=== PATIENT | female | born 1940 | race Caucasian/White ===

== ENCOUNTER 2022-12-16 08:33 | Outpatient (CLI) | payer MEDICARE, OTHER, SELFPAY ==
[2022-12-16 09:35] LABS: Hematocrit 39.3 % (37.0-47.0); Hemoglobin 13.2 g/dL (12.0-15.0)
[2022-12-16 09:46] LABS: Albumin Level 4.3 g/dL (3.5-5.1); Estimated Glomerular Filt Rate > 60; Glucose 99 mg/dL (65-110)
== END 2022-12-16 08:34 | disposition home or self-care (01) ==
PROVIDERS: PCP Internal Medicine; Visit Provider Orthopaedic Surgery
DX: K21.9 Gastro-esophageal reflux disease without esophagitis (principal); R43.8 Other disturbances of smell and taste; E78.2 Mixed hyperlipidemia; I10 Essential (primary) hypertension; M17.11 Unilateral primary osteoarthritis, right knee
CPT/HCPCS: 36415; 82040; 82565; 82947; 85014; 85018

== ENCOUNTER 2022-12-18 12:31 | Outpatient (CLI) | payer MEDICARE, OTHER, SELFPAY ==
--- NOTE | ~2022-12-18 | CT_ITS ---
EXAMINATION: CT LE RT wo con DATE: 12/18/2022 12:58 INDICATION: Right knee pain and osteoarthritis for preoperative planning TECHNIQUE: High resolution computed tomography (CT) of the right lower limb from the hip through the foot was performed without intravenous contrast. Additional sagittal and coronal reconstructions were performed. Automated exposure control and iterative reconstruction technique were employed. The dose -length product was 1725.33 mGy-cm. COMPARISON: 11/20/2022 FINDINGS: No fracture. Polyarticular osteoarthritis throughout the right lower limb, severe at the patellofemor al compartment of the right knee with with similar lateral patellar subluxation and severe lateral si ded joint space narrowing with remodeling the articular cortex and prominent subarticular cystic groves ges at the lateral patellar facet and lateral trochlea. Mild osteoarthritis at the medial and lateral compartments. Alignment of the right lower limb is otherwise normal. Moderate to severe osteoarthrit is with additional subarticular cystic changes at multiple joint spaces in the midfoot. Moderate oste oarthritis at a few of the interphalangeal joints. Mild osteoarthritis at the right hip, ankle and re maining joints in the right foot. Small right knee joint effusion. The uterus is not identified and h as likely been surgically resected. Pelvic floor relaxation. IMPRESSION: 1. Severe patellofemoral compartment osteoarthritis at the right knee. Reviewed, dictated and finalized at location A.
== END 2022-12-18 12:32 | disposition home or self-care (01) ==
PROVIDERS: PCP Internal Medicine; Visit Provider Orthopaedic Surgery
DX: M17.11 Unilateral primary osteoarthritis, right knee (principal)
CPT/HCPCS: 73700

== ENCOUNTER 2022-12-24 11:32 | Outpatient (CLI) | payer MEDICARE, OTHER, SELFPAY ==
--- NOTE | 2022-12-24 11:52 | ECG_ITS ---
Measurements Intervals [place] Rate: 58 P: 73 LA: 186 QRS: -2 QRSD: 96 T: 96 QT: 422 QTc: 416 Interpretive Statements SINUS BRADYCARDIA ST-T WAVE ABNORMALITY IN ANTEROLATERAL LEADS- CONSIDER ISCHEMIA ABNORMAL ECG NO PREVIOUS ECG AVAILABLE FOR COMPARISON Electronically Signed On 12-24-2022 12:31:56 CDT by Murali Pandya D.O.
== END 2022-12-24 11:33 | disposition home or self-care (01) ==
PROVIDERS: PCP Internal Medicine; Visit Provider Orthopaedic Surgery
DX: I10 Essential (primary) hypertension (principal); R94.31 Abnormal electrocardiogram [ECG] [EKG]
CPT/HCPCS: 93005

== ENCOUNTER 2023-01-23 11:49 | Outpatient (CLI) | payer MEDICARE, OTHER, SELFPAY ==
[2023-01-23 13:12] LABS: Basophils Percent Auto 0.8 % (0.2-1.2); Eosinophils Absolute Auto 0.1 K/mm3 (0-0.3); Eosinophils Percent Auto 2.5 % (0-4.4); Hematocrit 38.7 % (37.0-47.0); Hemoglobin 12.9 g/dL (12.0-15.0); Immature Granulocyte Absolute 0.01 K/mm3 (0.00-0.031); Immature Granulocyte Percent A 0.2 % (0-0.5); Lymphocytes Absolute Auto 1.33 K/mm3 (0.9-3.2); Lymphocytes Percent Auto 27.3 % (18.3-44.2); Mean Corpuscular HGB Conc 33.3 g/dl (32-36); Mean Corpuscular Hemoglobin 30.2 pg (26-34); Mean Corpuscular Volume 90.6 fl (80-100); Mean Platelet Volume 9.5 fl (7.4-10.4); Monocytes Absolute Auto 0.3 K/mm3 (0.1-0.6); Monocytes Percent Auto 6.4 % (2.6-8.5); Neutrophils Absolute Auto 3.1 K/mm3 (1.3-6.7); Neutrophils Percent Auto 62.8 % (45.5-73.1); Platelet Count Result 248 k/mm3 (150-375); Red Blood Count 4.27 M/mm3 (4.2-5.4); Red Cell Distribution Width 13.3 % (11.5-14.5); White Blood Count 4.9 K/mm3 (4.5-10.0)
[2023-01-23 13:19] LABS: Albumin Level 4.1 g/dL (3.5-5.1)
[2023-01-23 13:23] LABS: Anion Gap 5 mmol/L (8-16); Blood Urea Nitrogen 13 mg/dL (7-17); Calcium 9.1 mg/dL (8.4-10.2); Carbon Dioxide 32 mmol/L (22-30); Chloride 99 mmol/L (98-107); Estimated Glomerular Filt Rate > 60; Glucose 119 mg/dL (65-110); Potassium 3.8 mmol/L (3.4-5.0); Sodium 136 mmol/L (137-145)
[2023-01-23 13:25] LABS: Urine Cotinine NEGATIVE
[2023-01-23 13:49] LABS: Hemoglobin A1C 5.4 % (<5.7)
== END 2023-01-23 11:50 | disposition home or self-care (01) ==
LOC: ANHSURGERY 11:54
PROVIDERS: Anesthesiology; PCP Internal Medicine; Visit Provider Orthopaedic Surgery
DX: Z01.818 Encounter for other preprocedural examination (principal); I10 Essential (primary) hypertension; M17.11 Unilateral primary osteoarthritis, right knee
CPT/HCPCS: 36415; 80048; 80307; 82040; 83036; 85025; 87081

== ENCOUNTER 2023-02-18 00:15 | Day surgery (SDC) | payer MEDICARE, OTHER, SELFPAY ==
[2023-01-23 11:59] VITALS: BMI 26.4
--- NOTE | 2023-01-23 12:25 | PC.NURSE ---
Report to the Outpatient Waiting Room, entrance under the green pavilion located off [facility], at time __0830 on date __02/18/23 . Planned Procedure Time: _1030 . Time changes happen often and if your time is changed the preop area will call you the afternoon before. - You and your visitor will be asked to self-screen and do not enter if you have any COVID symptoms. - A mask is optional within the hospital at this time. Patients may have clear liquids (water, carbonated beverages, clear teas, apple juice) until 3 hours prior to surgery with a maximum of 20 ounces. - No food from midnight until time of surgery - Infants may have breast milk until 4 hours before surgery, formula 6 hours prior to surgery. - Children will be allowed to drink immediately following surgery. If applicable, please bring a bottle or sippy cup to assist with drinking. Juice, water, soda, and popsicles are readily available. For infants on formula, please bring formula the day of surgery. Pacifiers are allowed. Take the following medications with a SIP of water the morning of surgery: _AMLODIPINE, EYE DROPS,LEVOTHYROXINE, DO NOT STOP ANY OF YOUR OTHER PRESCRIPTION MEDICATIONS PRIOR TO SURGERY ?EXCEPT THE FOLLOWING Medications to discontinue per physician ___MELOXICAM HOLD 7 DAYS PRE OP PER DR GARZON LAST DOSE 02/10/23 ALL VITAMINS AND SUPPLEMENTS HOLD 7 DAYS PRE OP PER DR GARZON .LAST DOSE 02/10/23 TOTAL JOINT CLASS AT 10 AM Please no make-up, nail frisian, hairspray, perfume, deodorant, or body powder the day of surgery. No jewelry (including any body piercings) or valuables the day of surgery, leave them at home. Please take a shower or bath the night before, or the morning of, surgery with an antibacterial soap. Wear comfortable, loose fitting clothing. Children are encouraged to wear pajamas. - Jewelry must be removed prior to entering the operating room. Rings and piercings that are not removed may be cut off. - The hospital will not accept responsibility for valuables. - Please leave all valuables, including medications, at home the day of surgery. If you are going home after surgery, a licensed delivery driver must drive you home. - NO public transportation without another adult if you receive anesthesia. - We recommend that an adult stay with you for 24 hours following discharge. - We also recommend that you do not drive, make important decision, drink alcoholic beverages, or take any drugs that were not prescribed by your health care provider for at least 24 hours after your discharge time. For Pediatric surgeries, we recommend two adults accompany the child home. Follow any additional instructions given to you from your surgeon. If you or anyone in your household have experienced Covid symptoms in the past week, please notify your surgeon or the nurse liaison at the phone number below for possible testing. VERBAL AND WRITTEN instructions given to __PATIENT AND SPOUSE ROBERT and asked if any additional questions and then verbalized understanding. Patient advised to call surgeon office or pre surgery nurse liaison [phone] if any additional questions.
[2023-01-23 12:45] VITALS: BP 160/81; PULSE 66; RESP 18; TEMP 36.7; O2SAT 97
--- NOTE | 2023-02-17 13:53 | WPDANESEPPF ---
Anes - Initial Pre Proc Eval Procedure: Operation Date: 02/18/23 10:30 Proposed Procedures p Right Custom Total Knee Arthroplasty - Mariusz Goncalves MD Date/Time: 02/17/23 13:53 Surgeon: Mariusz Goncalves MD Pre Op Diagnosis: Prm O A Right Knee Patient Data Age: 82 Gender: F Height: 1.55 m Weight: 63.4 kg Last Vital Signs Temp 36.7 C 01/23/23 12:45 Pulse 66 01/23/23 12:45 Resp 18 01/23/23 12:45 BP 160/81 H 01/23/23 12:45 Pulse Ox 97 01/23/23 12:45 O2 Del Method Room Air 01/23/23 12:45 Allergies Allergy/AdvReac Type Severity Reaction Status Date / Time adhesive tape Allergy Mild Blister Verified 02/18/23 08:40 acetaminophen [From Tylenol] Allergy Unknown delays Verified 02/18/23 08:40 urine flow amoxicillin [From Amoxil] Allergy Unknown Hives Verified 02/17/23 08:54 tetracycline Allergy Unknown Hives Verified 01/23/23 12:00 Home Medications Medication Instructions Recorded Confirmed Type amlodipine 5 mg tablet 5 mg PO DAILY 11/01/22 02/18/23 History ascorbic acid (vitamin C) 500 mg 500 mg PO DAILY 11/01/22 02/18/23 History capsule cholecalciferol (vitamin D3) 62.5 62.5 mcg PO DAILY 11/01/22 02/18/23 History mcg (2,500 unit) capsule cyanocobalamin (vitamin B-12) 1,000 mcg PO EVERY OTHER DAY 11/01/22 02/18/23 History 1,000 mcg capsule diclofenac sodium 1 % topical gel 2 g topical QID 11/01/22 02/18/23 History fluticasone propionate 50 1 spray intranasal DAILY 11/01/22 02/18/23 History mcg/actuation nasal spray,suspension (Flonase Allergy Relief) hydrochlorothiazide 12.5 mg capsule 12.5 mg PO DAILY 11/01/22 02/18/23 History levothyroxine 112 mcg tablet 112 mcg PO DAILY 11/01/22 02/18/23 History (Synthroid) magnesium citrate 100 mg capsule 100 mg PO DAILY 11/01/22 02/18/23 History pantoprazole 40 mg granules 40 mg PO DAILY 11/01/22 02/18/23 History delayed-release for susp in packet (Protonix) potassium gluconate 595 mg (99 mg) 595 mg PO DAILY 11/01/22 02/18/23 History tablet psyllium husk (with sugar) 2 gram 2 wafer PO DAILY 11/01/22 02/18/23 History oral wafer (Metamucil Fiber Thin) zolpidem 5 mg tablet (Ambien) 5 mg PO QHS 11/01/22 02/18/23 History meloxicam 15 mg tablet 15 mg PO DAILY 11/20/22 02/18/23 History cyclosporine 0.05 % eye drops in a 1 drp EACH EYE Q12H 01/23/23 02/18/23 History dropperette (Restasis) glucosamine-chondroitin 500 mg-400 1 cap PO DAILY 01/23/23 02/18/23 History mg capsule lutein 20 mg capsule 20 mg PO DAILY 01/23/23 02/18/23 History vitamins A,C,F-szah-gzbpro 2,148 1 tablet PO BID 01/23/23 02/18/23 History mcg-113 mg-45 mg-17.4 mg tablet (PreserVision AREDS) aspirin 81 mg tablet,delayed 81 mg PO BID 14 days #28 tabs 02/18/23 Rx release meloxicam 15 mg tablet 15 mg PO DAILY #30 tabs 02/18/23 Rx oxycodone-acetaminophen 5 mg-325 1 - 2 tablet PO Q4-6H PRN pain #20 02/18/23 Rx mg tablet tabs prednisone 5 mg tablet 5 mg PO DAILY 3 weeks #21 tabs 02/18/23 Rx Patient hx anesthesia problems: none Family hx anesthesia problems: none Results Review: All pre-operative results and documents have been reviewed as part of the pre-operative evaluation. [facility] Past Medical History Medical History Age related osteoporosis Arthritis Disorder of zinc metabolism Dysgeusia GERD without esophagitis History of colon cancer History of stress test (~2011) Hypertension, essential Hypogeusia Hypothyroidism due to acquired atrophy of thyroid Irritable bowel syndrome with both constipation and diarrhea Lactose intolerance Laryngopharyngeal reflux Low bone mass Microsmia Mixed hyperlipidemia Ocular migraine PNAR (perennial non-allergic rhinitis) Surgical History Surgical History History of hysterectomy (~1995) History of partial colectomy (~1990) History of tonsillectomy (~1953) His
[2023-02-18] VITALS (17 sets, daily range): BP systolic 142–183; BP diastolic 55–86; PULSE 54–68; RESP 8–20; TEMP 35.8–36.9; O2SAT 92–100
--- NOTE | ~2023-02-18 | XR_ITS ---
EXAMINATION: [id number] DATE: 02/18/2023 12:00 INDICATION: Total right knee arthroplasty. Postop. TECHNIQUE: 2 views of right knee were obtained. COMPARISON: Right knee radiographs 11/20/2022 FINDINGS: There is a total right knee arthroplasty without patellar resurfacing in near-anatomic alig nment. No fracture. There is severe osteoarthritis of patellofemoral compartment. There is gas in the soft tissues, consistent recent surgery. No knee joint effusion. IMPRESSION: 1. Total right knee arthroplasty in near-anatomic alignment. Reviewed, dictated and finalized at location E. WINDER
--- NOTE | 2023-02-18 07:20 | WPDHPUPDATE1 ---
History and Physical Update Update Date/Time: 02/18/23 07:20 History and Physical has been reviewed, including an updated exam of the patient. There are NO changes in the patient's condition. Risks, benefits, and alternatives have been discussed and questions answered. Patient agrees to proceed with procedure.
[2023-02-18] MEDS: LACTATED RINGERS 1,000 ML 30 ML IV CONT ×2 (09:15→11:40)
--- NOTE | 2023-02-18 09:47 | WPDANESPNB ---
Anes - Peripheral Nerve Block Date/Time: 02/18/23 09:47 I have discussed with the patient/family/POA the placement of a peripheral nerve block for post-operative pain management, including associated risks, benefits, complications, and side effects. Alternative methods of post-operative analgesia were detailed. Questions were solicited and answers provided to the satisfaction of the patient/family/POA. Time-Out: A pre-procedural Time-Out was completed immediately before starting the procedure and confirmed: Patient Identification, Site, Procedure, Patient Position and the Availability of Requisite Equipment. Clinical Indications: Acute post-operative pain management requested by the operative surgeon. Nerve Block Insertion Note Anes-nerve block: adductor canal right Patient position: supine Skin prep: chlorhexidine Needle: 22 gauge, stimulating, insulated echogenic needle. Needle length: 80 mm Technique: ultrasound Injectate: bupivacaine 0.5% with epi 5 mcg/ml (30cc - no epi) Observations: tolerated well Complications: none Procedure start time:: 945 Procedure end time:: 948
[2023-02-18] MEDS: TRANEXAMIC ACID 1,000MG/ISO100 1,000 MG/100 ML BAG 200 MG IVPB (09:57)
[2023-02-18] MEDS: ceFAZolin 2 GM/D5W 50 ML 2 GM/50 ML BAG IVPB ×2 (09:57→17:36)
[2023-02-18] MEDS: GENTAMICIN BONE CEMENT REFOBACIN 1 EACH TOPICAL (10:30)
[2023-02-18] MEDS: fentaNYL CITRATE INJ (*CRX) 100 MCG/2 ML VIAL 25 MCG IV PUSH ×4 (12:20→12:49)
--- NOTE | 2023-02-18 12:21 | W.PM.PROC2 ---
Procedure Note - Detailed Date of Procedure 02/18/23 Pre-op Diagnosis Prm O A Right Knee Post-op Diagnosis Same Procedure Performed Total knee arthroplasty, right. Surgeon Mariusz Goncalves MD Guide Dog Instructor Ale Gallo PA-C Anesthesia General and Regional (Subsartorial block.) Findings Satisfactory bone. Patella less than 10mm. Lateral facetectomy performed. Description of Procedure Preoperative antibiotics were given. The limb was prepped and draped in the usual sterile fashion with a well-padded tourniquet high on the thigh. The limb was exsanguinated and the tourniquet inflated to 300 mmHg. A longitudinal incision was created just medial to the patella. A trivector approach to the knee was performed. Arthrotomy was taken down through the joint capsule. No significant releases were initially taken. The femur was exposed and the F1 jig was applied. The coring tool was used to remove the cartilage for the F2 jig to sit flush with the bone. The jig was pinned and the distal cut carefully taken. Caliper measurements confirmed appropriate bony resections according to the preoperative templated plan. The F4 cutting jig for the femur was applied, at the standard rotation. The AP and anterior chamfer cuts were taken. The F5 jig was applied and the posterior chamfer cuts were taken. The tibia was prepared using the T1 jig, after removing cartilage for the jig contact points. Proper alignment was checked with the alignment milagros. The tibia was cut using the T1u guide. Gap balancing was performed. Gap measurements were taken and the knee was trialed. Excellent alignment and soft tissue balancing was confirmed. The posterior cruciate ligament was recessed along the proximal tibia. Lateral patellar facetectomy performed. Meniscal remnants were removed. The trial components were assembled. Excellent range of motion and proper soft tissue balancing were confirmed throughout the full range of motion. Patellar tracking was excellent. The knee was copiously irrigated periodically throughout the procedure. The real implants were cemented into position. Excess cement was carefully removed. The wound was closed in layers with interrupted #1 Vicryl suture, #2 strata fix suture, 2-0 strata fix suture, 3-0 strata fix suture. Steri-Strips placed on the skin with the knee flexed. Sterile bulky dressing applied. The patient was brought to the recovery room in stable condition. There were no complications. Physician election assistant, Ale Gallo PA-C, required for surgery; including patient positioning, draping, tissue retraction, maintaining instrument position, cement removal, wound closure, and dressing placement. Implants Conformis Imprint total knee arthroplasty. Cemented. Cruciate retaining. 8 mm insert. Estimated Blood Loss 100 Drains No Complications No immediate complications Condition Stable Disposition PACU [facility] Billing Surgery - Charge Forward: Surgery Billing
--- NOTE | 2023-02-18 13:00 | SUR.PHASEI ---
Patient meets PACU discharge criteria, unit bed unavailable at this time. Patient placed in extended recovery status.
[2023-02-18] MEDS: SENNA/DOCUSATE SODIUM TABLET 2 TAB PO (17:33)
[2023-02-18] MEDS: ASPIRIN 81 MG ENTERIC TABLET PO (17:34)
--- NOTE | 2023-02-18 18:14 | ADMGEN ---
This patient, Prisca Sierra, was admitted to [facility] Room 300-01. Patient/family oriented to hospital policies and general routines including ID bracelet, bed and alarms, visiting hours, pain management, procedures, bathroom and other care routines, personal items, smoking policy, room service/diet, and visiting hours. Information on how to activate the Rapid Response Team has been discussed. Patient/Family are encouraged to report perceived risks to care and to ask questions if they do not understand what they are told or what they should do.
[2023-02-18] MEDS: FAMOTIDINE 20 MG TABLET PO (20:27)
[2023-02-18] MEDS: cycloSPORINE 0.4 ML OPHTH SOLUTION 1 DROP EACH EYE (20:27)
[2023-02-18] MEDS: ZOLPIDEM TARTRATE (*CRX) 5 MG TABLET PO (20:27)
--- NOTE | 2023-02-18 21:51 | PM.IMCN ---
Assessment and Plan Assessment and plan (1) Status post total right knee replacement: Code(s): Z96.651 - Presence of right artificial knee joint Status: Acute (2) Hypertension, essential: Code(s): I10 - Essential (primary) hypertension Status: Acute (3) Hypothyroidism due to acquired atrophy of thyroid: Code(s): E03.4 - Atrophy of thyroid (acquired) Status: Acute (4) Insomnia: Qualifiers: Insomnia type: other insomnia Qualified Code(s): G47.09 - Other insomnia Code(s): G47.00 - Insomnia, unspecified Status: Acute Plan Problem List 1. s/p total right knee replacement primary care through ortho team ambulate with assistance and up to chair cardiac monitoring Q4H use IS SCDs resume diet: regular pain management zofran PRN for nausea monitor labs in AM - CBC and BMP adding maintenance fluids: LR 100 mL/hr 2. HTN Continue amlodipine and hydrochlorothiazide hydralazine prn for BP greater than 175/90 monitor 3. hypothyroidism low clinical concern for alteration in TSH/T3/T4 r/t medication continue home levothyroxine 4. insomnia continue Ambien p.r.n. add melatonin p.r.n. Home Meds/Chronic Conditions - Flonase and eyedrops continued. - Held home preserve vision, Metamucil, potassium, magnesium, lutein, glucosamine/chondroitin, diclofenac topical, B12, D3, vitamin-C. may resume at d/c. Diet: regular GI Prophylaxis: continue home pantoprazole DVT Prophylaxis: SCDs Lines: pIV Code Status: Full Code, requesting no salvage determiner G-Tube or Trach. HPI Date of Consult Consult date: 02/18/23 Requesting Physician: Mariusz Goncalves MD Primary Care Provider: Robert SmithMD Consult Narrative Reason for consult: Medical Managment Narrative: Prisca Sierra is a 82 year old female presents here for a R total knee arthroplasty with PMH of HTN, dm, IBS, GERD, colon cancer s/p partial colectomy. Patient had reported severe right knee pain with swelling. Attempted conservative measures: Daily NSAIDs and PT. However given severity of pain and alteration in gait with mild valgus deformity and tricompartmental disease, patient elected to move forward with surgical treatment. No assistive devices used prior to surgery. R total knee performed on 02/18 without immediate complications. Patient reports that her blood pressure is normally 120/60, no recent issues with her BP, and she has not had any recent med changes. Most recent med change was last year, patient's Synthroid was reduced. Patient followed up for this med change with her PCP this past December, TSH rechecked and no issues. Denies any tachycardia, palpitations, nausea, vomiting, constipation, depression/anxiety, cold intolerance. Does endorse heat intolerance, reports this is chronic and unchanged. No other concerns with chronic conditions. Does report some insomnia when sleeping in a new place, occasionally will take Ambien for this problem. Also reports feeling very dry due to reduced liquid intake r/t mild postoperative nausea. A/Ox4. Review of Systems Review of Systems: All systems reviewed & are unremarkable except as noted in HPI and below PMFSH Past Medical History Medical History (Updated 02/18/23 @ 22:11 by Dacia Noyola APRN) Age related osteoporosis Arthritis Disorder of zinc metabolism Dysgeusia GERD without esophagitis History of colon cancer History of stress test (~2011) Hypertension, essential Hypogeusia Hypothyroidism due to acquired atrophy of thyroid Insomnia Irritable bowel syndrome with both constipation and diarrhea Lactose intolerance Laryngopharyngeal reflux Low bone mass Microsmia Mixed hyperlipidemia Ocular migraine PNAR (perennial non-allergic rhinitis) Surgical History Surgical History History of hysterectomy (~1995) History of partial colectomy (~1990) Histo
[2023-02-18] MEDS: LACTATED RINGERS 1,000 ML 100 ML IV CONT (22:09)
[2023-02-19] VITALS: BP 166/59; PULSE 61; RESP 16; TEMP 35.8; O2SAT 97
[2023-02-19] MEDS: oxyCODONE HCL (*CRX) 5 MG TAB IR 10 MG PO (00:15)
[2023-02-19] MEDS: ceFAZolin 2 GM/D5W 50 ML 2 GM/50 ML BAG IVPB ×2 (02:30→10:04)
[2023-02-19 05:05] VITALS: BP 158/60; PULSE 60; RESP 16; TEMP 35.6; O2SAT 93
[2023-02-19] MEDS: LEVOTHYROXINE SODIUM 112 MCG TABLET PO (05:13)
[2023-02-19 06:44] LABS: Basophils Percent Auto 0.4 % (0.2-1.2); Eosinophils Absolute Auto 0.1 K/mm3 (0-0.3); Eosinophils Percent Auto 0.6 % (0-4.4); Hematocrit 32.4 % (37.0-47.0); Hemoglobin 10.7 g/dL (12.0-15.0); Immature Granulocyte Absolute 0.03 K/mm3 (0.00-0.031); Immature Granulocyte Percent A 0.3 % (0-0.5); Lymphocytes Absolute Auto 1.32 K/mm3 (0.9-3.2); Lymphocytes Percent Auto 14.6 % (18.3-44.2); Mean Corpuscular Hemoglobin 30.1 pg (26-34); Mean Corpuscular Volume 91.3 fl (80-100); Mean Platelet Volume 9.5 fl (7.4-10.4); Monocytes Absolute Auto 0.6 K/mm3 (0.1-0.6); Monocytes Percent Auto 6.4 % (2.6-8.5); Neutrophils Percent Auto 77.7 % (45.5-73.1); Platelet Count Result 216 k/mm3 (150-375); Red Blood Count 3.55 M/mm3 (4.2-5.4); Red Cell Distribution Width 13.1 % (11.5-14.5)
[2023-02-19 07:15] LABS: Anion Gap 3 mmol/L (8-16); Blood Urea Nitrogen 10 mg/dL (7-17); Calcium 8.4 mg/dL (8.4-10.2); Carbon Dioxide 32 mmol/L (22-30); Chloride 97 mmol/L (98-107); Estimated CRCL calculation 46 ml/min; Estimated Glomerular Filt Rate > 60; Glucose 106 mg/dL (65-110); Potassium 3.4 mmol/L (3.4-5.0); Sodium 132 mmol/L (137-145)
[2023-02-19 08:00] VITALS: BP 125/58; PULSE 62; RESP 16; TEMP 37.1; O2SAT 99
--- NOTE | 2023-02-19 08:10 | PM.DS ---
DS: Admitting Diagnosis Discharge Date 02/19/23 Admitting Diagnosis OA knee Right DS: Discharge Diagnosis Discharge Diagnosis (1) Status post total right knee replacement: Code(s): Z96.651 - Presence of right artificial knee joint Status: Acute Plan Postop day 1: Right total knee arthroplasty. Patient tolerated procedure well. No complications. Pain manageable with pain medication. No numbness or tingling. We had a lengthy discussion regarding postoperative wound care, limitations, expectations, and exercises. Patient shows good understanding. She has had initial physical therapy and is tolerating it well. DVT prophylaxis: 81 mg baby aspirin b.i.d. for 14 days. Pain medication: Oxycodone. Patient has followup appointment with Dr. Goncalves in 3 weeks. DS: Summary Hospital Course Reason for hospitalization: Total knee arthroplasty Hospital Course: Patient tolerated procedure well. Has had initial PT/OT. No complications. Pain well managed. Status at Discharge Functional status at discharge: uses cane/walker Overall status at discharge: patient is progressing back to baseline Time Spent with Patient Time attestation: Total time spent providing and/or coordinating discharge services: Exam Narrative: Normal weight 82 y/o female. Resting comfortably in chair. No acute distress. A&O x3. Wearing compression socks bilaterally. Dressing intact with no drainage. Moderate swelling. Moderate ecchymosis, worse medially. Mild erythema. No hematoma. No signs of infection. Good early range of motion. Calf nontender. Neurologic status intact. No varicosities. Distal pulses palpable. DS: Data Data Completed and Pending Labs on day of discharge: Labs from last 24 hours 02/19/23 02/18/23 06:09 09:14 WBC 9.0 RBC 3.55 L Hgb 10.7 L Hct 32.4 L MCV 91.3 MCH 30.1 MCHC 33.0 RDW 13.1 Plt Count 216 MPV 9.5 Immature Gran % (Auto) 0.3 Neut % (Auto) 77.7 H Lymph % (Auto) 14.6 L [place] % (Auto) 6.4 Eos % (Auto) 0.6 Baso % (Auto) 0.4 Lymph # (Auto) 1.32 [place] # (Auto) 0.6 Eos # (Auto) 0.1 Baso # (Auto) 0.0 Abs Immat Gran (auto) 0.03 Absolute Neuts (auto) 7.0 H Absolute Nucleated RBC 0.0 Nucleated RBC % 0.0 Sodium 132 L Potassium 3.4 Chloride 97 L Carbon Dioxide 32 H Anion Gap 3 L BUN 10 Creatinine 0.60 L Estim Creat Clear Calc 46 Estimated GFR > 60 Glucose 106 Calcium 8.4 Blood Type O Positive Antibody Screen Negative Discharge Plan Discharge Patient Disposition: Home, Self-Care Discharge Instructions: See green instruction sheets Stand Alone Forms: General Discharge Instructions Follow-up/Referrals: Ale Gallo PA [Physician Commercial Relationship Manager] - Discharge Medications: New aspirin 81 mg tablet,delayed release (DR/EC) 81 mg PO BID 14 Days Qty: 28 0RF meloxicam 15 mg tablet 15 mg PO DAILY Qty: 30 0RF Rx Instructions: Cut in half. Take 1/2 in morning and 1/2 at night. Take with food. Stop if stomach upset. prednisone 5 mg tablet 5 mg PO DAILY 21 Days Qty: 21 0RF oxycodone 5 mg tablet 5 mg PO Q4H PRN (Reason: pain) Qty: 20 0RF Continued meloxicam 15 mg tablet 15 mg PO DAILY amlodipine 5 mg tablet 5 mg PO DAILY ascorbic acid (vitamin C) 500 mg capsule 500 mg PO DAILY cholecalciferol (vitamin D3) 62.5 mcg (2,500 unit) capsule 62.5 mcg PO DAILY cyanocobalamin (vitamin B-12) 1,000 mcg capsule 1,000 mcg PO EVERY OTHER DAY diclofenac sodium 1 % gel 2 g topical QID Rx Instructions: apply to single elbow, wrist or hand; for hand includes palm/fingers/back of hand fluticasone propionate [Flonase Allergy Relief] 50 mcg/actuation spray,suspension 1 spray intranasal DAILY Rx Instructions: administer into each nostril hydrochlorothiazide 12.5 mg capsule 12.5 mg PO DAILY levothyroxine [Synthroid
[2023-02-19] MEDS: oxyCODONE HCL (*CRX) 5 MG TAB IR PO (08:38)
[2023-02-19] MEDS: CYCLOBENZAPRINE HCL 10 MG TABLET PO (08:39)
[2023-02-19] MEDS: hydroCHLOROthiazide 12.5 MG CAPSULE PO (08:39)
[2023-02-19] MEDS: SENNA/DOCUSATE SODIUM TABLET 2 TAB PO (08:39)
[2023-02-19] MEDS: polyethylene glycoL 3350 17 GM POWD.PACK PO (08:39)
[2023-02-19] MEDS: MELOXICAM 7.5 MG TABLET 15 MG PO (08:40)
[2023-02-19] MEDS: FAMOTIDINE 20 MG TABLET PO (08:40)
[2023-02-19] MEDS: cycloSPORINE 0.4 ML OPHTH SOLUTION 1 DROP EACH EYE (08:40)
[2023-02-19] MEDS: amLODIPine BESYLATE 5 MG TABLET PO (08:40)
[2023-02-19] MEDS: predniSONE 5 MG TABLET PO (08:40)
[2023-02-19] MEDS: ASPIRIN 81 MG ENTERIC TABLET PO (08:40)
[2023-02-19] MEDS: PANTOPRAZOLE 40 MG TABLET PO (08:41)
[2023-02-19] MEDS: FLUTICASONE PROPIONATE 0.05% NA SPR 16 GM BTL (*BKC) 1 SPRAY NASAL (08:42)
--- NOTE | 2023-02-19 13:03 | PM.IMPN ---
Progress Note: A&P Assessment and Plan (1) Status post total right knee replacement: Code(s): Z96.651 - Presence of right artificial knee joint Status: Acute Assessment and Plan: Patient is working with PT/OT and progressing. (2) Hypertension, essential: Code(s): I10 - Essential (primary) hypertension Status: Acute (3) Hypothyroidism due to acquired atrophy of thyroid: Code(s): E03.4 - Atrophy of thyroid (acquired) Status: Acute (4) Insomnia: Qualifiers: Insomnia type: other insomnia Qualified Code(s): G47.09 - Other insomnia Code(s): G47.00 - Insomnia, unspecified Status: Acute Plan Problem List 1. s/p total right knee replacement primary care through ortho team ambulate with assistance and up to chair cardiac monitoring Q4H use IS SCDs resume diet: regular pain management zofran PRN for nausea 2. HTN Continue amlodipine and hydrochlorothiazide hydralazine prn for BP greater than 175/90 monitor 3. hypothyroidism low clinical concern for alteration in TSH/T3/T4 r/t medication continue home levothyroxine 4. insomnia continue Ambien p.r.n. add melatonin p.r.n. Home Meds/Chronic Conditions - Flonase and eyedrops continued. - Held home preserve vision, Metamucil, potassium, magnesium, lutein, glucosamine/chondroitin, diclofenac topical, B12, D3, vitamin-C. may resume at d/c. Diet: regular GI Prophylaxis: continue home pantoprazole DVT Prophylaxis: SCDs Lines: pIV Code Status: Full Code, requesting no fpc G-Tube or Trach. Time Spent With Patient Time: Less than 30 minutes Subjective Date/time seen: 02/19/23 1015 Review of Systems Review of Systems: All systems reviewed & are unremarkable except as noted in HPI and below Constitutional: Constitutional: Reports no additional constitutional complaints Musculoskeletal: Musculoskeletal: Reports arthralgias (Right knee s/p knee replacement) Exam Narrative: Upon standing this morning patient up in chair packing her bags and getting dressed. States she is ready to go home. Pleasant and oriented x4. Appears in no acute distress. Const: General: comfortable and no acute distress HENMT: Face/Nose/Sinus: Normal nares present Mouth: Yes moist mucous membranes Eyes: General: appearance normal, both eyes and all related structures Sclera: sclerae normal Pupils: Equal, round and reactive pupils present EOM: EOMs intact bilaterally Neck: Neck: supple Resp: Effort & Inspection: normal respiratory effort Auscultation: clear to auscultation bilaterally Other: Patient appears in no acute respiratory distress. Able to speak complete sentences without difficulty. No use of accessory muscles appreciated. Lung sounds are clear and equal bilaterally. Cardio: Rate: regular rate Rhythm: regular rhythm Other: S1-S2 present without murmur, rub, ectopy GI: GI Palp: Yes Soft to palpation Auscultation: normal bowel sounds Skin: General skin exam: normal color, no rashes or lesions noted and wounds noted Wounds: wounds noted Other: post-op incision to R anterior knee, no active draining or ecchymosis. Dressing in place, dry and intact. Mild tenderness proximal to patella. Neuro: Cranial nerves: Yes Equal, round and reactive pupils present Speech: normal speech Sensory Exam: normal sensation Other: A/Ox4 Extrem: General: normal to inspection Psych: Mental Status: mental status grossly normal Affect: normal affect Objective Data Vital Signs Vital Signs: Vital Signs - 24 hr 02/18/23 13:10 02/18/23 13:25 02/18/23 13:40 Temperature Pulse Rate 54 L 55 L 58 L Respiratory Rate 12 12 20 Blood Pressure 166/63 H 148/71 H 142/70 H Pulse Oximetry 99 99 98 Oxygen Delivery Nasal Cannula Nasal Cannula Nasal Cannula Oxygen Flow Rate 2 2 2 02/18/23 13:55 02/18/23 14:07 02/18/23 14:54 Temperature Pulse Rate 55 L 56
--- NOTE | 2023-02-19 13:56 | P.PNAN_ITS ---
Anes - Prog Note Post-Op Date/Time: 02/19/23 13:56 Cardiovascular status: normal Respiratory status: normal Airway patency: baseline Mental status: baseline Post-Op hydration status: normal Vital Signs: Last Vital Signs Temp 98.8 F 02/19/23 08:00 Pulse 62 02/19/23 08:00 Resp 16 02/19/23 08:00 BP 125/58 L 02/19/23 08:00 Pulse Ox 99 02/19/23 08:00 O2 Del Method Room Air 02/19/23 08:00 O2 Flow Rate 2 02/18/23 13:55 Pain Score (VAS): 0/10 I/O: Intake & Output 02/18/23 02/19/23 02/19/23 23:59 07:59 15:59 Intake Total 170 390 240 Balance 170 390 240 Laboratory Tests 02/19/23 06:09 02/19/23 06:09 02/19/23 06:09 WBC 9.0 RBC 3.55 L Hgb 10.7 L Hct 32.4 L MCV 91.3 MCH 30.1 MCHC 33.0 RDW 13.1 Plt Count 216 MPV 9.5 Immature Gran % (Auto) 0.3 Neut % (Auto) 77.7 H Lymph % (Auto) 14.6 L [place] % (Auto) 6.4 Eos % (Auto) 0.6 Baso % (Auto) 0.4 Lymph # (Auto) 1.32 [place] # (Auto) 0.6 Eos # (Auto) 0.1 Baso # (Auto) 0.0 Abs Immat Gran (auto) 0.03 Absolute Neuts (auto) 7.0 H Absolute Nucleated RBC 0.0 Nucleated RBC % 0.0 Sodium 132 L Potassium 3.4 Chloride 97 L Carbon Dioxide 32 H Anion Gap 3 L BUN 10 Creatinine 0.60 L Estim Creat Clear Calc 46 Estimated GFR > 60 Glucose 106 Calcium 8.4 Post-procedural complaints: none Patient Feedback: Patient satisfied with anesthetic care.
== END 2023-02-19 11:45 | disposition home or self-care (01) ==
LOC: ANHSURGERY 08:24 → ANH3MEDSUR 14:11
PROVIDERS: Physician Assistant Surgical; PCP Internal Medicine; Visit Provider Orthopaedic Surgery
PROC: (CPT 27447; principal; 2023-02-18 10:30)
DX: M17.11 Unilateral primary osteoarthritis, right knee (principal); I10 Essential (primary) hypertension; E03.4 Atrophy of thyroid (acquired); G47.00 Insomnia, unspecified; E78.5 Hyperlipidemia, unspecified
CPT/HCPCS: 27447; 36415; 73560; 80048; 85025; 86850; 86900; 86901; 97110; 97116; 97161; 97165; 97530; 97535; A9270; C1713; C1776; J0171; J0690; J1100; J1170; J1885; J2250; J2270; J2405; J2704; J2795; J3010; J7120; J7512

== ENCOUNTER 2023-03-12 12:29 | Outpatient (CLI) | payer MEDICARE, OTHER, SELFPAY ==
--- NOTE | ~2023-03-12 | XR_ITS ---
EXAMINATION: XR knee RT 3V DATE: 03/12/2023 12:48 INDICATION: Postop right knee arthroplasty TECHNIQUE: Three views of the right knee were obtained. COMPARISON: 11/20/2022 FINDINGS: Alignment is normal. No fracture or osteochondral lesion. There are changes of interval kne e arthroplasty. No joint effusion is identified. Soft tissues are unremarkable. IMPRESSION: 1. Changes of interval knee arthroplasty without acute osseous abnormality. Reviewed, dictated and finalized at location B. [employer]ST
== END 2023-03-12 12:30 | disposition home or self-care (01) ==
PROVIDERS: PCP Internal Medicine; Visit Provider Orthopaedic Surgery
DX: Z47.1 Aftercare following joint replacement surgery (principal); Z96.651 Presence of right artificial knee joint
CPT/HCPCS: 73562

== ENCOUNTER 2023-04-09 10:31 | Outpatient (CLI) | payer MEDICARE, OTHER, SELFPAY ==
--- NOTE | ~2023-04-09 | XR_ITS ---
XR knee RT min 4V DATE: 04/09/2023 10:50 INDICATION: Right artificial knee joint TECHNIQUE: [place], [place] and standing AP and lateral views COMPARISON: 03/12/2023 right knee FINDINGS: Status post right knee arthroplasty. No fracture, dislocation, periosteal reaction or bone destruction is detected. IMPRESSION: Right knee arthroplasty Reviewed, dictated and finalized at location B. 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
== END 2023-04-09 10:32 | disposition home or self-care (01) ==
PROVIDERS: PCP Internal Medicine; Visit Provider Orthopaedic Surgery
DX: Z96.651 Presence of right artificial knee joint (principal)
CPT/HCPCS: 73564

== ENCOUNTER 2023-08-08 09:54 | Outpatient (CLI) | payer MEDICARE, OTHER, SELFPAY ==
--- NOTE | ~2023-08-08 | XR_ITS ---
Right Knee Technique: AP, lateral, and sunrise views were obtained. Clinical History: Arthroplasty follow-up COMPARISON: 04/09/2023 Findings: No fracture or dislocation is seen. Right knee arthroscopy in place, unchanged. Soft tissue s are unremarkable. No joint effusion is seen. Impression: Stable right knee arthroplasty. Reviewed, dictated and finalized at location . Impression: Stable right knee arthroplasty.
== END 2023-08-08 09:55 | disposition home or self-care (01) ==
LOC: ANHIMG 09:57
PROVIDERS: PCP Internal Medicine; Visit Provider Orthopaedic Surgery
DX: Z96.651 Presence of right artificial knee joint (principal)
CPT/HCPCS: 73562